=== PATIENT | female | born 1970 | race Two or more races ===

== ENCOUNTER 2024-03-17 02:50 | Emergency (ER) | payer OTHER ==
[~2024-03-17] VITALS: Ht 154.9 cm; Wt 61.2 kg
[2024-03-17] MEDS ORDERED: RINGERS SOLUTION,LACTATED 1,000 ML IV STA (04:30)
[2024-03-17] MEDS ORDERED: HYOSCYAMINE SULFATE 0.125 MG TAB.SUBL SL STA (04:31)
[2024-03-17] MEDS ORDERED: FAMOtidine 10 MG/ML (4ML VIAL) IV PUSH STA (04:32)
[2024-03-17] MEDS ORDERED: PROMETHAZINE HCL 50 MG/ML AMPUL IM STA (04:32)
[2024-03-17] MEDS ORDERED: MEPERIDINE HCL/PF 25 MG/ML VIAL IM STA (04:32)
[2024-03-17 05:24] LABS: HEMATOCRIT 40.6 % (36.0-45.00); MEAN CELL VOLUME 90.6 fL (80.00-100.00); MEAN CORPUSCULAR HEMOGLOBIN 31.3 pg (27.00-32.0); MEAN CORPUSCULAR HGB CONC 34.6 g/dl (32.0-36.0); PLATELET COUNT 337 K/uL (150-450); RED BLOOD COUNT 4.48 M/uL (4.00-6.00); RED CELL DISTRIBUTION WIDTH 13.1 % (11.5-14.5)
[2024-03-17 05:36] LABS: INR 1.04; PARTIAL THROMBOPLASTIN TIME 31.6 SECONDS (22.0-34.0); PROTHROMBIN TIME 11.3 SECONDS (9.0-11.5)
[2024-03-17 05:40] LABS: ALBUMIN 3.5 gm/dL (3.4-5.0); BILIRUBIN TOTAL 0.4 mg/dL (0.3-1.2); CALCIUM 9.1 mg/dL (8.5-10.1); CREATININE SERUM 0.6 mg/dL (0.55-1.02); GFR 104.98; POTASSIUM 3.62 mEq/L (3.5-5.1); TOTAL PROTEIN 7.5 gm/dL (6.4-8.2)
[2024-03-17] MEDS ORDERED: ZOFRAN8 MG PO (09:10)
[2024-03-17] MEDS ORDERED: PEPCID AC20 MG PO (09:10)
[2024-03-17] MEDS ORDERED: PROBIOTIC1 EAC4 PO (09:10)
== END 2024-03-17 09:30 | disposition home or self-care (01) ==
LOC: ER 02:51
DX: R10.32 Left lower quadrant pain (principal); K52.89 Other specified noninfective gastroenteritis and colitis